=== PATIENT | female | born 1990 | race Caucasian/White ===

== ENCOUNTER 2020-09-01 13:24 | Emergency (ER) | payer BC, SELFPAY ==
--- NOTE | ~2020-09-01 | XR_ITS ---
XR chest 2V DATE: 09/01/2020 14:20 INDICATION: Chest pain, heartburn TECHNIQUE: PA and lateral views COMPARISON: None FINDINGS: Normal heart size. No hilar or mediastinal enlargement. No pulmonary infiltrate or consolid ation, pleural effusion or pulmonary vascular congestion or pneumothorax. Included skeletal structure s are unremarkable. IMPRESSION: Negative chest Reviewed, dictated and finalized at location A. [employer] IMPRESSION: Negative chest
[2020-09-01 13:28] VITALS: BP 130/97; PULSE 77; RESP 20; TEMP 35.9; O2SAT 100
--- NOTE | 2020-09-01 13:30 | ECG_ITS ---
Measurements Intervals [place] Rate: 69 P: 37 TX: 139 QRS: 17 QRSD: 88 T: -21 QT: 370 QTc: 397 Interpretive Statements SINUS RHYTHM WITH SINUS ARRHYTHMIA EARLY PRECORDIAL R/S TRANSITION VOLTAGE CRITERIA FOR LVH BORDERLINE ST-T WAVE ABNORMALITY- ANTEROLAT/INF LEADS BORDERLINE ECG Electronically Signed On 09-01-2020 16:06:49 [facility] by Gray Rudolph D.O.
[2020-09-01 13:47] LABS: Basophils Absolute Auto 0.1 K/mm3 (0.0-0.1); Basophils Percent Auto 0.8 % (0.2-1.2); Eosinophils Absolute Auto 0.3 K/mm3 (0-0.3); Eosinophils Percent Auto 3.5 % (0-4.4); Hemoglobin 12.1 g/dL (12.0-15.0); Immature Granulocyte Absolute 0.01 K/mm3 (0.00-0.031); Immature Granulocyte Percent A 0.1 % (0-0.5); Lymphocytes Absolute Auto 2.66 K/mm3 (0.9-3.2); Lymphocytes Percent Auto 34.8 % (18.3-44.2); Mean Corpuscular HGB Conc 31.8 g/dl (32-36); Mean Corpuscular Hemoglobin 27.1 pg (26-34); Mean Corpuscular Volume 85.2 fl (80-100); Mean Platelet Volume 9.1 fl (7.4-10.4); Monocytes Absolute Auto 0.5 K/mm3 (0.1-0.6); Monocytes Percent Auto 6.7 % (2.6-8.5); Neutrophils Absolute Auto 4.1 K/mm3 (1.3-6.7); Neutrophils Percent Auto 54.1 % (45.5-73.1); Platelet Count Result 364 k/mm3 (150-375); Red Blood Count 4.46 M/mm3 (4.2-5.4); Red Cell Distribution Width 14.8 % (11.5-14.5); White Blood Count 7.6 K/mm3 (4.5-10.0)
[2020-09-01 13:58] LABS: INR 0.9
[2020-09-01 14:00] LABS: Partial Thromboplastin Time 31.2 SECONDS (22.3-36.8)
[2020-09-01 14:07] LABS: Anion Gap 8 mmol/L (8-16); Blood Urea Nitrogen 10 mg/dL (7-17); Calcium 9.4 mg/dL (8.4-10.2); Carbon Dioxide 23 mmol/L (22-30); Chloride 111 mmol/L (98-107); Estimated Glomerular Filt Rate > 60; Glucose 84 mg/dL (65-105); Potassium 4.2 mmol/L (3.4-5.0); Sodium 142 mmol/L (137-145)
--- NOTE | 2020-09-01 14:09 | ED.CHESTPAIN ---
HPI - Chest Pain General Chief Complaint: Chest Pain Stated Complaint: heartburn Time Seen by Provider: 09/01/20 14:09 History of Present Illness HPI narrative: 30 yo female presents to the ED for heart burn. She has had chest/epigastric pain since last night after eating taco [place]. She syas that it feels like her usual heart burn, but worse and more persistent. She did get partial relief with zantac. She came in today, because she her boyfriend was concerned. Related Data Allergies Allergy/AdvReac Type Severity Reaction Status Date / Time [id number] Allergy Severe Dyspnea / Uncoded 11/18/18 23:07 SOB ANTIBACTERIAL SOAP AdvReac Mild RASH Uncoded 11/18/18 23:07 Review of Systems Review of Systems: All systems reviewed & are unremarkable except as noted in HPI and below Cardiovascular: Cardiovascular: Reports chest pain Respiratory: Respiratory: Reports dyspnea on exertion (chronic) Gastrointestinal: Gastrointestinal: Reports belching and Reports nausea PMFSH Past Medical History Medical History GERD (gastroesophageal reflux disease) Obesity Family History Family History Other Asthma Carcinoma of colon Cerebrovascular accident Family history of cardiovascular disease Hypertension Social History Social History Smoking status: Never smoker Alcohol intake: current Gender identity (if verbalized by the patient): Female Exam Const: General: healthy appearing, no acute distress and alert Nutritional Appearance: obese Orientation/consciousness: patient oriented x3 HENMT: Head: normal to inspection Neck: Neck: normal visual inspection and no lymphadenopathy Chest: Chest palpation & inspection: tenderness sternum Resp: Effort & Inspection: normal respiratory effort Auscultation: clear to auscultation bilaterally, no rales, no rhonchi and no wheezes Cardio: Jugular venous distension: no JVD Rate: regular rate Rhythm: regular rhythm Heart sounds: no murmurs GI: Inspection: non-distended GI Palp: Yes Soft to palpation and Yes Tenderness to palpation present (GI) (epigastric) Skin: General skin exam: normal color Neuro: General: patient oriented x3 and moves all extremities Speech: normal speech Extrem: General: no edema Psych: Appearance: well kempt Affect: normal affect Course Vital Signs Vital signs: Vital Signs Temperature 35.9 C L 09/01/20 13:28 Pulse Rate 77 09/01/20 13:28 Respiratory Rate 20 09/01/20 13:28 Blood Pressure 130/97 H 09/01/20 13:28 Pulse Oximetry 100 09/01/20 13:28 Temperature 35.9 C L 09/01/20 13:28 Pulse Rate 75 09/01/20 15:25 Respiratory Rate 20 09/01/20 15:25 Blood Pressure 126/80 09/01/20 15:25 Pulse Oximetry 97 09/01/20 15:25 MDM - Chest Pain MDM Narrative Medical decision making narrative: Pain similar to usual reflux. Better with GI cocktail. Work-up reassuring Medical Records Data Attestation: I reviewed the patient's medical records. Lab Data Attestation: I reviewed the patient's lab results. Result diagrams: 09/01/20 13:38 09/01/20 13:38 Labs: Lab Results 09/01/20 09/01/20 09/01/20 Range/Units 13:38 13:38 13:38 WBC 7.6 (4.5-10.0) K/mm3 RBC 4.46 (4.2-5.4) M/mm3 Hgb 12.1 (12.0-15.0) g/dL Hct 38.0 (37.0-47.0) % MCV 85.2 (80-100) fl MCH 27.1 (26-34) pg MCHC 31.8 L (32-36) g/dl RDW 14.8 H (11.5-14.5) % Plt Count 364 (150-375) k/mm3 MPV 9.1 (7.4-10.4) fl Immature Gran % (Auto) 0.1 (0-0.5) % Neut % (Auto) 54.1 (45.5-73.1) % Lymph % (Auto) 34.8 (18.3-44.2) % Wirt % (Auto) 6.7 (2.6-8.5) % Eos % (Auto) 3.5 (0-4.4) % Baso % (Auto) 0.8 (0.2-1.2) % Lymph # (Auto) 2.66 (0.9-3.2) K/mm3 Wirt # (Auto) 0.5 (0.1-0.6) K/mm3 Eos # (
[2020-09-01 14:14] LABS: Troponin I < 0.012 ng/mL (0.000-0.034)
--- NOTE | 2020-09-01 14:18 | PC.NURSE ---
Pt to XRAY via w/c.
[2020-09-01 14:27] VITALS: BP 136/87; PULSE 78; RESP 20; O2SAT 100
[2020-09-01 14:33] VITALS: BP 105/73; PULSE 79; RESP 20; O2SAT 98
[2020-09-01 14:34] VITALS: PULSE 79
[2020-09-01] MEDS: PANTOPRAZOLE SODIUM IV 40 MG VIAL IV PUSH (14:54)
[2020-09-01 15:17] VITALS: BP 126/80; PULSE 75; RESP 20; O2SAT 100
[2020-09-01 15:25] VITALS: BP 126/80; PULSE 75; RESP 20; O2SAT 97
== END 2020-09-01 15:26 | disposition home or self-care (01) ==
PROVIDERS: Emergency Provider Emergency Medicine
DX: K21.9 Gastro-esophageal reflux disease without esophagitis (principal); E66.9 Obesity, unspecified; Z68.43 Body mass index [BMI] 50.0-59.9, adult
CPT/HCPCS: 36415; 71046; 80048; 84484; 85025; 85610; 85730; 93005; 96374; 99284; A9270; C9113